=== PATIENT | male | born 1950 | race Caucasian/White ===

== ENCOUNTER 2017-03-26 09:47 | Emergency (ER) | payer OTHER, MEDICAID ==
[2017-03-26 09:55] VITALS: RESP 16; TEMP 99.1
--- NOTE | 2017-03-26 10:05 | EDPHY ---
H & P Time Seen by Provider: 03/26/17 09:55 HPI/ROS: CHIEF COMPLAINT: I am just going crazy, and depression and anxiety HISTORY OF PRESENT ILLNESS: This 67-year-old man has not seen a doctor for 5 years or more. He has a history of hypertension not currently on medications. He states that he also has a history of depression. He presents to the ED with multiple complaints including feeling off balance like he is walking on a boat on the ocean, increasing depression, weight loss of about 20 lb, all symptoms lasting most of 2017. He said today he was at home and felt like he "just could not take it anymore "and called an ambulance to bring him to the emergency department. He does denies suicidal or homicidal ideation or hallucinations. REVIEW OF SYSTEMS: Eye: no change in vision ENT: no sore throat Cardiac: no chest pain or syncope Pulmonary: no cough or SOB Abdomen: no vomiting, diarrhea, abdominal pain Musculoskeletal: no back pain Skin: no rash Neuro: Mild headache, no visual symptoms. Not thunderclap in onset or worst of life. Constitutional: no fever : no urinary symptoms A comprehensive 10 point review of systems is otherwise negative aside from elements mentioned in the history of present illness. PAST MEDICAL HISTORY: Hypertension, depression. Social history: Smoker, no recent alcohol General Appearance: Alert and conversant, cooperative. Thin. Eyes: No scleral icterus. ENT, Mouth: Slightly dry mucous membranes. Normal pharynx otherwise. No facial swelling or redness or tenderness. Respiratory: Normal respiratory effort, breath sounds equal, lungs are clear to auscultation. Cardiovascular: Regular rate and rhythm. Gastrointestinal: Abdomen is soft and non tender. Neurological: Alert and oriented x3. Normally conversant. Face symmetric, normal movement and sensation in all extremities. Patient is ambulatory to the bathroom without ataxia. No pronator drift. Normal [id number] bilaterally. Skin: Warm and dry, no rashes. Musculoskeletal: No peripheral edema and no joint swelling. Normal range of motion of the neck. Psychiatric: Depressed affect but denies suicidal or homicidal ideation. Moderately anxious. Emergency Department course/MDM: Head CT, urinalysis, labs to include CBC and chemistries, chest x-ray. 1050: Negative head CT per Roxy. Does not have objective evidence of cerebellar dysfunction in the emergency department. 1130: Discussed with patient, seen by case management. We attempted to arrange multiple opportunities for outpatient follow-up regarding medical and psychiatric evaluation. Seen by mental health photo offset printer in the emergency department. Does not appear to meet criteria to be an acute danger to himself or others or gravely disabled. Smoking Status: Current every day smoker Constitutional: Initial Vital Signs Temperature (C) 37.3 C 03/26/17 09:53 Heart Rate 93 03/26/17 09:53 Respiratory Rate 16 03/26/17 09:53 Blood Pressure 205/88 H 03/26/17 09:53 O2 Sat (%) 97 03/26/17 09:53 O2 Delivery Mode Room Air Allergies/Adverse Reactions: JORJE Inhibitors [Jorje Inhibitors] Allergy (Unknown, Verified 02/15/11 13:52) Home Medications: Medication Instructions Recorded NK [No Known Home Meds] 03/26/17 Medical Decision Making - Diagnostics Imaging Results: Imaging Impressions Chest X-Ray 03/26/17 10:24 Impression: 1. Nodular opacities in the lung bases, similar to the comparison from 2012, suggesting nipple shadows. 2. Hyperexpansion with interstitial prominence, likely related to COPD/ emphysema. Head CT 03/26/17 10:24 Impression: 1. No acute intracranial findings. If symptoms persist and clinical suspicion warrants, consider MRI. 2. Diffuse cerebral atrophy with periventricular and subcortical low attenuation consistent with chronic microvascular ischemic gliosis. Findings discussed with ANUPAMA OSBORN 03/26/2017 at 10:50. Differential Diagnosis: Differential for depression and anxiety considered including but not limited to metabolic, primary organic or psychiatric, drug or alcohol, infectious. - Data Points Laboratory Results: Laboratory Results 03/26/17 09:56 03/26/17 09:56 03/26/17 03/26/17 03/26/17 12:26 09:56 09:56 WBC 5.65 10^3/uL 10^3/uL (3.80-9.50) RBC 4.28 10^6/uL L 10^6/uL (4.40-6.38) Hgb 13.3 g/dL L g/dL (13.7-17.5) Hct 38.7 % L % (40.0-51.0) MCV 90.4 fL fL (81.5-99.8) MCH 31.1 pg pg (27.9-34.1) MCHC 34.4 g/dL g/dL (32.4-36.7) RDW 13.8 % % (11.5-15.2) Plt Count 158 10^3/uL 10^3/uL (150-400) MPV 10.6 fL fL (8.7-11.7) Neut % (Auto) 57.8 % % (39.3-74.2) Lymph % (Auto) 33.5 % % (15.0-45.0) [place] % (Auto) 7.3 % % (4.5-13.0) Eos % (Auto) 0.5 % L % (0.6-7.6) Baso % (Auto) 0.7 % % (0.3-1.7) Nucleat RBC Rel Count 0.0 % % (0.0-0.2) Absolute Neuts (auto) 3.27 10^3/uL 10^3/uL (1.70-6.50) Absolute Lymphs (auto) 1.89 10^3/uL 10^3/uL (1.00-3.00) Absolute Monos (auto) 0.41 10^3/uL 10^3/uL (0.30-0.80) Absolute Eos (auto) 0.03 10^3/uL 10^3/uL (0.03-0.40) Absolute Basos (auto) 0.04 10^3/uL 10^3/uL (0.02-0.10) Absolute Nucleated RBC 0.00 10^3/uL 10^3/uL (0-0.01) Immature Gran % 0.2 % % (0.0-1.1) Immature Gran # 0.01 10^3/uL 10^3/uL (0.00-0.10) Sodium 141 mEq/L mEq/L (134-144) Potassium 3.8 mEq/L mEq/L (3.5-5.2) Chloride 108 mEq/L mEq/L (97-110) Carbon Dioxide 20 mEq/l L mEq/l (22-31) Anion Gap 13 mEq/L mEq/L (8-16) BUN 11 mg/dL mg/dL (7-23) Creatinine 1.0 mg/dL mg/dL (0.7-1.3) Estimated GFR > 60 Glucose 141 mg/dL H mg/dL (70-100) Calcium 9.3 mg/dL mg/dL (8.5-10.4) Urine Color YELLOW Urine Appearance CLEAR Urine pH 5.0 (5.0-7.5) Ur Specific [place] 1.016 (1.002-1.030) Urine Protein NEGATIVE (NEGATIVE) Urine Ketones NEGATIVE (NEGATIVE) Urine Blood NEGATIVE (NEGATIVE) Urine Nitrate NEGATIVE (NEGATIVE) Urine Bilirubin NEGATIVE (NEGATIVE) Urine Urobilinogen NEGATIVE EU EU (0.2-1.0) Ur Leukocyte Esterase NEGATIVE (NEGATIVE) Urine Glucose NEGATIVE (NEGATIVE) Medications Given: Discontinued Medications Lorazepam (Ativan) 0.5 mg PO EDNOW ONE Stop: 03/26/17 10:25 Last Admin: 03/26/17 10:27 Dose: 0.5 mg Departure - Departure Disposition: Home, Routine, Self-Care Clinical Impression: Anxiety Depression Qualifiers: Depression Type: major depressive disorder Major depression recurrence: recurrent Active/Remission status: currently active Major depression episode severity: moderate Qualified Code(s): F33.1 - Major depressive disorder, recurrent, moderate Condition: Good Instructions: Depression (ED) Referrals: [facility],. [Clinic] - As per Instructions [facility],. [Clinic] - As per Instructions
[2017-03-26 10:12] LABS: % IMMATURE GRANULYOCYTES 0.2 % (0.0-1.1); ABSOLUTE IMMATURE GRANULOCYTES 0.01 10^3/uL (0.00-0.10); ADD DIFF? NO; ADD MORPH? NO; ADD SCAN? NO; ATYPICAL LYMPHOCYTE FLAG 20 (0-99); FRAGMENT RBC FLAG 0 (0-99); HEMATOCRIT 38.7 % (40.0-51.0); HEMOGLOBIN 13.3 g/dL (13.7-17.5); LEFT SHIFT FLG 0 (0-99); LIPEMIA HEMOLYSIS FLAG 90 (0-99); MEAN CELL HEMOGLOBIN 31.1 pg (27.9-34.1); MEAN CELL HEMOGLOBIN CONCENTR. 34.4 g/dL (32.4-36.7); MEAN CELL VOLUME 90.4 fL (81.5-99.8); MEAN PLATELET VOLUME 10.6 fL (8.7-11.7); PLATELET CLUMPS FLAG 0 (0-99); PLATELET COUNT 158 10^3/uL (150-400); RED BLOOD CELL COUNT 4.28 10^6/uL (4.40-6.38); RED CELL DISTRIBUTION WIDTH 13.8 % (11.5-15.2)
[2017-03-26 10:18] LABS: ANION GAP 13 mEq/L (8-16); CALCIUM 9.3 mg/dL (8.5-10.4); CARBON DIOXIDE 20 mEq/l (22-31); CHLORIDE 108 mEq/L (97-110); GLOMERULAR FILTRATION RATE > 60; GLUCOSE 141 mg/dL (70-100); POTASSIUM 3.8 mEq/L (3.5-5.2); SODIUM 141 mEq/L (134-144)
[2017-03-26] MEDS ORDERED: LORazepam 1 MG TAB PO ONE (10:24)
[2017-03-26 12:34] LABS: COLOR YELLOW; LEUKOCYTE ESTERASE,URINE NEGATIVE (NEGATIVE); NITRITE,URINE NEGATIVE (NEGATIVE)
[2017-03-26 12:47] VITALS: BP 180/100; PULSE 85; O2SAT 95
--- NOTE | 2017-03-26 14:16 | ASDISCHSUM ---
Discharge Information Plan Status:Home with No Needs Medically Cleared to Leave: Discharge Date:03/26/2017 12:46 PM CM D/C Disposition:Home, Routine, Self-Care ADT D/C Disposition:Home, Routine, Self-Care Projected Discharge Date:03/26/2017 12:46 PM Transportation at D/C:Cab [employer]oucher Discharge Delay Reason: Follow-Up Date:03/26/2017 12:46 PM Discharge Slot: Final Diagnosis: Placement Information Patient Contact Information Contact Name:[id number] Relationship: Address: Home Phone: Work Phone: City: Alternate Phone: State/Vision Source Code: Email: Financial Information Financial Class: Primary Plan Desc:MEDICARE OUTPATIENT Primary Plan Number:[id number] Secondary Plan Desc:MEDICAID HEALTH FIRST [place] OP Secondary Plan Number:[id number] Assessment Information LACE LACE Acuity / Level of Care Answers: No. Comorbidities - select Answers: Chronic pulmonary disease all that apply Emergency dept visits in Answers: 1 last 6 months Score: 3 Date Signed: 03/26/2017 01:50 PM Electronically Signed By:Cheyanne Mosquera RN [facility] CM Progress Note CM Note CM Note Notes: Spoke with patient extensively about his weakness, weight loss, low energy levels, chronic pain and depression. Patient states he has not been to a PCP or mental health clinic for more than 4 years, "It is just too hard for me to go. I won't go. If you were to make an appointment for me this next week, I wouldn't go. I'm just being honest. It is too much for me." Patient presents in a debilitating depressive state, making minimal eye contact, nihilistic, becomes anxious very easily, and self reports "I read about depression and I guess I have a 'depressed brain,' I am more negative than I have ever been and I'm anhedonic." Patient states he has no thoughts of hurting himself "but I just wish it would all end. I have no validity in my life." Patient states he has struggled with depression and anxiety for many years and used to see a counselor and take medication that helped but "I stopped going because it was just too much, to get there and then nothing really helped." Patient was last at [facility] in 2014 for an asthma attack and in 2012; in 2012 patient was referred to followup with [facility] about his chest xray and alcohol abuse, but per patient, he never followed up. Patient also tried to get seen by [facility] "but it was several years ago, the person I spoke to put a note in saying I used 'abusive language' but I didn't. I had made a complaint about their processes but I wasn't abusive. And it took 6 months to see a psychiatrist. It was not a good experience so I didn't follow up." Patient states he no longer drinks alcohol heavily or regularly " I had one beer a week or so ago." This CM and ED MD Dr Hebert thought it would be beneficial for [facility] to speak to patient. Christina with [facility] visited with patient and provided additional [facility] resources, including their [facility] program, where a counselor would provide home visits. PAtient does not have a phone or use e-mail. Although patient is up front and says he would not make it to followup appointments, he does say he would welcome any home visits. This CM to follow up with [facility] tomorrow to see about possibility of a home visit for a follow-up and general physical, medication review, etc. This CM will also call [facility] to discuss their [facility] program and see if someone can reach out to patient at his apartment. Patient lives alone in an apartment at [facility] through [facility]. Patient does not want [facility] to be contacted or involved. Patient states he has a best friend but "he has his own things to deal with, I care about him but he also causes me a lot of stress." Patient has no other close support or family members. Date Signed: 03/26/2017 02:14 PM Electronically Signed By:Cheyanne Mosquera RN Intervention Information Intervention Type:Semasios Date of Service:03/26/2017 02:15 PM Patient Type:Emergency Room Staff Member:GONZALEZ Mosquera, Cheyanne Hours:0.5 Discipline:Elementary Math Tutor Severity: Comment:
== END 2017-03-26 12:46 | disposition home or self-care (01) ==
LOC: EDUNIT#
DX: F33.1 Major depressive disorder, recurrent, moderate (principal); I10 Essential (primary) hypertension; F17.200 Nicotine dependence, unspecified, uncomplicated

== ENCOUNTER 2018-07-07 11:04 | Inpatient (IN) | payer OTHER, MEDICAID ==
[2018-07-07] MEDS ORDERED: NS 1,000 ML IV ONE (12:04)
[2018-07-07 12:28] LABS: PLATELET COUNT 257 10^3/uL (150-400)
--- NOTE | 2018-07-07 12:31 | EDPHY ---
H & P Stated Complaint: hematuria x 3 days, fatigue and lightheaded Time Seen by Provider: 07/07/18 12:28 HPI/ROS: HPI: This is a 68-year-old male who presents with Chief Complaint: Hematuria x3 days, fatigue and lightheaded Location: Quality: Blood in urine Duration: 3-4 days Signs and Symptoms: no fever, no nausea, no vomiting, no hematemesis, no blood in stool, + abdominal bloating, no diarrhea, no back pain, no burning with urination, no testicular/groin pain, no indigestion, no chest pain, no shortness of breath, no flank pain Timing: Acute, intermittent episodes Severity: Moderate Context: Patient presents with blood in his urine starting Monday evening. Reports that it he sees blood in his blood stream and he can see blood in the toilet every time he urinates. Denies any burning with urination, fever, flank pain, urinary hesitancy, urinary urgency. No history kidney stones. Reports several month history of abdominal bloating and gas pain that his primary care provider knows about but no imaging has been performed. Last prostate exam was approximately 10 years ago. Notes 30 lb weight loss in over the last 1 year. Patient urinated upon arrival to the emergency room without difficulty. Not on any blood thinners. Modifying Factors: None Comment: ROS: A comprehensive 10 system review of systems is otherwise negative aside from elements mentioned in the history of present illness. MEDICAL/SURGICAL/SOCIAL HISTORY: Medical history: Hypertension, asthma,depression, hyperthyroidism Surgical history: Denies Social history: Current every day smoker. Alcohol use pretty heavy in the past. Family history noncontributory. CONSTITUTIONAL: Chronically ill-appearing elderly white male, awake and alert, no obvious distress HEENT: Atraumatic and normocephalic, PERRL, EOMI. Hard of hearing. Nares patent; no rhinorrhea; no nasal mucosal edema. Tympanic membranes clear. Oropharynx clear, no exudate and moist pink mucosa. Airway patent. No lymphadenopathy. No meningismus. Cardiovascular: Normal S1/S2, regular rate, regular rhythm, without murmur rub or gallop. PULMONARY/CHEST: Symmetrical and nontender. Clear to auscultation bilaterally. Good air movement. No accessory muscle usage. ABDOMEN: Soft, nondistended, mild suprapubic tenderness, no rebound, no guarding, no peritoneal signs, no masses or organomegaly. No CVAT. EXTREMITIES: 2/2 pulses, strength 5/5, no deformities, no clubbing, no cyanosis or edema. NEUROLOGICAL: no focal neuro deficits. GCS 15. SKIN: Warm and dry, no erythema. no rash. Good capillary refill. Source: Patient, RN/MD Exam Limitations: No limitations - Personal History Tetanus Vaccine Date: within last 5 years - Medical/Surgical History Hx Asthma: No Hx Chronic Respiratory Disease: No Hx Diabetes: No Hx Cardiac Disease: No Hx Renal Disease: No Hx Cirrhosis: No Hx Alcoholism: No Hx HIV/AIDS: No Hx Splenectomy or Spleen Trauma: No Other PMH: Past medical history: Hypertension, asthma,depression, hyperthyroid - Social History Smoking Status: Current every day smoker Constitutional: Initial Vital Signs Temperature (C) 36.9 C 07/07/18 11:10 Heart Rate 81 07/07/18 11:10 Respiratory Rate 16 07/07/18 11:10 Blood Pressure 153/73 H 07/07/18 11:10 O2 Sat (%) 97 07/07/18 11:10 O2 Delivery Mode Room Air Allergies/Adverse Reactions: JORJE Inhibitors [Jorje Inhibitors] Allergy (Unknown, Verified 02/15/11 13:52) Home Medications: Medication Instructions Recorded Methimazole 12/08/17 Metoprolol Tartrate 50 mg PO BID #60 tablet 12/08/17 Paxil 12/08/17 Triazolam [Halcion 0.25MG (*)] 0.25 mg PO HS PRN #30 tab 12/08/17 Medical Decision Making ED Course/Re-evaluation: Vital signs reviewed and show mildly elevated blood pressure. No systemic signs. IV access, laboratory studies, urinalysis, CT abdomen and pelvis scan ordered Given 1 L normal saline 1254: Labs reviewed. WBC 10 K, BUN 15, creatinine 1.2, glucose 101, no coagulopathy, glucose 101 Urinalysis shows 3+ blood, 2+ protein, 50-200 RBCs 1530: Called by Radiology, Dr. Talat Schroeder, who reports lesion on the wall the bladder on the right side superior posterior portion, lesion on the liver that was not there in 2010, cirrhosis of the liver, chronic pancreatitis with calcifications at the head but no pseudocyst. 1535: ED decision to consult hospitalist for gross hematuria, bladder wall lesion, liver lesion, cirrhosis, chronic pancreatitis. Consulted Urology, Dr. Santamaria, recommends ultrasound of bladder and if more than [address] a [address] Kerr catheter with CBI. This patient was seen under the supervision of my secondary supervising physician. I evaluated care for this patient with attending. Differential Diagnosis: Differential diagnosis includes but is not limited to obstruction, diverticulitis, kidney stone, ureteral stone, bladder cancer, urinary tract infection, pyelonephritis. - Data Points Laboratory Results: Laboratory Results 07/07/18 12:15 07/07/18 12:15 07/07/18 07/07/18 07/07/18 12:15 12:15 12:15 WBC 9.64 10^3/uL H 10^3/uL (3.80-9.50) RBC 4.13 10^6/uL L 10^6/uL (4.40-6.38) Hgb 13.6 g/dL L g/dL (13.7-17.5) Hct 39.3 % L % (40.0-51.0) MCV 95.2 fL fL (81.5-99.8) MCH 32.9 pg pg (27.9-34.1) MCHC 34.6 g/dL g/dL (32.4-36.7) RDW 12.4 % % (11.5-15.2) Plt Count 257 10^3/uL 10^3/uL (150-400) MPV 9.1 fL fL (8.7-11.7) Neut % (Auto) 53.0 % % (39.3-74.2) Lymph % (Auto) 35.6 % % (15.0-45.0) [place] % (Auto) 7.5 % % (4.5-13.0) Eos % (Auto) 2.7 % % (0.6-7.6) Baso % (Auto) 0.7 % % (0.3-1.7) Nucleat RBC Rel Count 0.0 % % (0.0-0.2) Absolute Neuts (auto) 5.11 10^3/uL 10^3/uL (1.70-6.50) Absolute Lymphs (auto) 3.43 10^3/uL H 10^3/uL (1.00-3.00) Absolute Monos (auto) 0.72 10^3/uL 10^3/uL (0.30-0.80) Absolute Eos (auto) 0.26 10^3/uL 10^3/uL (0.03-0.40) Absolute Basos (auto) 0.07 10^3/uL 10^3/uL (0.02-0.10) Absolute Nucleated RBC 0.00 10^3/uL 10^3/uL (0-0.01) Immature Gran % 0.5 % % (0.0-1.1) Immature Gran # 0.05 10^3/uL 10^3/uL (0.00-0.10) PT 12.5 SEC SEC (12.0-15.0) INR 0.97 (0.83-1.16) APTT 32.7 SEC SEC (23.0-38.0) Sodium 136 mEq/L mEq/L (135-145) Potassium 3.8 mEq/L mEq/L (3.5-5.2) Chloride 107 mEq/L mEq/L (97-110) Carbon Dioxide 19 mEq/l L mEq/l (22-31) Anion Gap 10 mEq/L mEq/L (6-14) BUN 15 mg/dL mg/dL (7-23) Creatinine 1.2 mg/dL mg/dL (0.7-1.3) Estimated GFR 60 Glucose 101 mg/dL H mg/dL (70-100) Calcium 8.7 mg/dL mg/dL (8.5-10.4) Urine Color Urine Appearance Urine pH Ur Specific [place] Urine Protein Urine Ketones Urine Blood Urine Nitrate Urine Bilirubin Urine Urobilinogen Ur Leukocyte Esterase Urine RBC Urine WBC Ur Epithelial Cells Urine Glucose 07/07/18 12:10 WBC RBC Hgb Hct MCV MCH MCHC RDW Plt Count MPV Neut % (Auto) Lymph % (Auto) [place] % (Auto) Eos % (Auto) Baso % (Auto) Nucleat RBC Rel Count Absolute Neuts (auto) Absolute Lymphs (auto) Absolute Monos (auto) Absolute Eos (auto) Absolute Basos (auto) Absolute Nucleated RBC Immature Gran % Immature Gran # PT INR APTT Sodium Potassium Chloride Carbon Dioxide Anion Gap BUN Creatinine Estimated GFR Glucose Calcium Urine Color RED Urine Appearance HAZY Urine pH 6.0 (5.0-7.5) Ur Specific [place] 1.012 (1.002-1.030) Urine Protein 2+ H (NEGATIVE) Urine Ketones NEGATIVE (NEGATIVE) Urine Blood 3+ H (NEGATIVE) Urine Nitrate NEGATIVE (NEGATIVE) Urine Bilirubin NEGATIVE (NEGATIVE) Urine Urobilinogen NEGATIVE EU EU (0.2-1.0) Ur Leukocyte Esterase NEGATIVE (NEGATIVE) Urine RBC 50-182 /hpf H /hpf (0-3) Urine WBC 10-15 /hpf H /hpf (0-3) Ur Epithelial Cells NONE SEEN /lpf /lpf (NONE-1+) Urine Glucose NEGATIVE (NEGATIVE) Medications Given: Discontinued Medications Sodium Chloride (Ns) 1,000 mls @ 0 mls/hr IV ONCE ONE; Wide Open PRN Reason: Protocol Stop: 07/07/18 12:05 Last Admin: 07/07/18 12:15 Dose: 1,000 mls Departure - Departure Disposition: [facility] Clinical Impression: Gross hematuria, Lesion of bladder, Liver lesion, Chronic alcoholic pancreatitis Liver cirrhosis Qualifiers: Hepatic cirrhosis type: alcoholic cirrhosis Ascites presence: without ascites Qualified Code(s): K70.30 - Alcoholic cirrhosis of liver without ascites Condition: Fair
[2018-07-07 12:54] LABS: INR 0.97 (0.83-1.16); PROTIME(PATIENT) 12.5 SEC (12.0-15.0)
[2018-07-07] MEDS ORDERED: IOPAMIDOL (ISOVUE-300) 100 ML BTL ONE ×2 (14:06→19:46)
[2018-07-07] MEDS ORDERED: ONDANSETRON 4 MG/2 ML VIAL IVP PRN (16:06)
[2018-07-07] MEDS ORDERED: ONDANSETRON DISINTEGRATING 4 MG TAB PO PRN (16:06)
[2018-07-07] MEDS ORDERED: diphenhydrAMINE 25 MG CAP PO PRN (16:40)
[2018-07-07] MEDS ORDERED: ALBUTEROL 60 PUFFS/8 GM MDI IH PRN (16:40)
[2018-07-07] MEDS ORDERED: OXYMETAZOLINE 30 ML NASAL SPRAY EACHNARE PRN (17:30)
--- NOTE | 2018-07-07 17:33 | GHP ---
[f rep st] HISTORY AND PHYSICAL DATE OF ADMISSION: 07/07/2018 CHIEF COMPLAINT: Hematuria. HISTORY OF PRESENT ILLNESS: This is a 68-year-old man who presents with hematuria. This started 4 d ays prior to presentation. He does take aspirin as needed for headaches but no other blood thinners. This started abruptly. He had urinated normally earlier in the day and then that evening he had fr ank blood. He has noted some clots in there. He has not had any problems actually producing urine w hen he feels like he needs to. He has never seen a urologist before. He notes that he had 1 episode of mild blood in his stool, however, this has not recurred. He notes he has had some balance proble ms recently. He has also noted that he has been bloated recently. He has no change in his stool col or or caliber. He has a significant history of alcohol abuse, although he has not had anything to dr azevedo for 6 years. PAST MEDICAL/SURGICAL HISTORY: 1. Alcohol as above. 2. History of upper GI bleed in 1999. 3. Hypertension. 4. Depression anxiety. 5. Reactive airways disease. 6. Tremor. 7. Hyperthyroid diagnosed about 1 year ago associated with some weight loss. 8. Shoulder surgery. 9. Achilles tendon repair. 10. Knee surgery. MEDICATIONS: Please see medication reconciliation. ALLERGIES: EDIE inhibitors. FAMILY HISTORY: Reviewed and noncontributory. SOCIAL HISTORY: He quit drinking as above. He does currently smoke. REVIEW OF SYSTEMS: 10-point review of systems is conducted and is negative except per HPI. PHYSICAL EXAM: VITAL SIGNS: Blood pressure 168/74, heart rate 55, respiration rate 19, sating 97% o n room air, temperature 36.7. GENERAL: Mr. Carey is a pleasant man who is resting comfortably. No acute distress. HEENT: Shows him to have multiple missing teeth in his lower jaw. CARDIOVASCULAR: Exam shows a regular rate and rhythm. There are no murmurs, rubs, or gallops. PULMONARY: Shows jamie ngs are clear to auscultation bilaterally. He is in no respiratory distress. ABDOMEN: Soft, nonten aneglica, nondistended. There is no suprapubic tenderness to palpation. No flank pain. SKIN: Shows no rash. : Exam shows no Kerr. NEUROLOGIC: Exam shows him to be alert and oriented x3. He has no focal neurologic deficits. PSYCHIATRIC: Shows normal mood and affect. LABS: White count is 9.4, hemoglobin is 13.6, INR 0.97, creatinine is 1.2, bicarb is 19, glucose is 101. Urinalysis shows 50-182 reds, 10-15 whites, 3+ blood. DATA: 1. Discussed with Shanae Ennis, will admit to med/surg. 2. Discussed with Dr. Santamaria, will make him n.p.o. after midnight. 3. I reviewed his abdominal CT scan that shows a lesion in his bladder which may indicate a bladder wall neoplasm. He has question of hepatic steatosis and evidence of chronic pancreatitis with diffus e pancreatic calcifications. IMPRESSION AND PLAN: 1. Hematuria with possible bladder neoplasm seen on CT scan: Urology will be involved. He has no e vidence of urinary obstruction at this point. He has no evidence of a UTI either. He may be a kayleen date for a cystoscopy while he is here for further diagnosis. 2. Liver consistent with possible steatosis and chronic pancreatitis seen on his CT scan: Will get a right upper quadrant ultrasound of his liver to better characterize. Will check LFTs as well as IN R. He has no abdominal pain to indicate acute pancreatitis and he gives no history of having had acu te pancreatitis. These changes may be from his chronic alcohol use, he is currently abstinent as abo ve. 3. Recent balance issues. Will check a CT scan of his head given lesion seen in his bladder. 4. Hyperthyroid. Continues methimazole. Check TSH and free T4. 5. Hypertension. Continue his triamterene hydrochlorothiazide for now. 6. Mild leukocytosis. Recheck tomorrow. 7. Code status. He would like to be do not resuscitate. He is asked to have a MOLST form provided to him. I will ask Case Management to do this. 8. Venous thromboembolism risk is moderate, though he has hematuria. Will place him on SCDs. /[id number]/MODL
[2018-07-07] MEDS: NICOTINE 21 MG/24 HR PATCH TD SCH (18:07)
[2018-07-07] MEDS: LORazepam 0.5 MG TAB PO PRN (18:49)
[2018-07-07] MEDS: SIMETHICONE 80 MG TAB CHEW PO SCH ×2 (18:49→20:53)
--- NOTE | 2018-07-07 20:46 | SOAPPROG ---
SOAP Progress Note Assessment/Plan: Assessment: Presents w/ gross painless hematuria and bladder mass. Plan: Proceed with intraoperative cystoscopy, excision of bladder mass, and bilateral retrograde pyelography tomorrow AM. (consult # [id number]) Objective: Vital Signs Temp Pulse Resp BP Pulse Ox 36.6 C 59 L 18 140/63 H 99 07/07/18 19:31 07/07/18 19:31 07/07/18 19:31 07/07/18 19:31 07/07/18 19:31 07/06/18 07/07/18 07/08/18 05:59 05:59 06:59 Intake Total 240 Output Total 250 Balance -10 PT 12.5 SEC (12.0-15.0) 07/07/18 12:15 INR 0.97 (0.83-1.16) 07/07/18 12:15 ICD10 Worksheet Patient Problems: Problems Problem Status Onset Gross hematuria Acute Lesion of bladder Acute Liver lesion Acute Chronic alcoholic pancreatitis Acute Liver cirrhosis Acute
[2018-07-07] MEDS: ACETAMINOPHEN 325 MG TAB PO PRN (20:53)
[2018-07-07] MEDS: PARoxetine HCL 20 MG TAB PO SCH (20:53)
[2018-07-07] MEDS: METOPROLOL TARTRATE 25 MG TAB PO SCH (20:54)
[2018-07-08 04:42] LABS: PLATELET COUNT 215 10^3/uL (150-400)
[2018-07-08 04:54] LABS: INR 1.08 (0.83-1.16); PROTIME(PATIENT) 13.6 SEC (12.0-15.0)
[2018-07-08] MEDS ORDERED: IOPAMIDOL (ISOVUE-300) 150 ML BTL ONE (05:46)
[2018-07-08] MEDS ORDERED: LIDOCAINE 2% JELLY 20 ML (UROJECT) ONE (05:46)
[2018-07-08] MEDS ORDERED: MIDAZOLAM 2 MG/2 ML VIAL ONE (08:08)
[2018-07-08] MEDS ORDERED: levOFLOXACIN 500 MG/DEXTROSE/100 ML BAG IV ONE (08:12)
[2018-07-08] MEDS ORDERED: MIDAZOLAM 2 MG/2 ML VIAL IVP ONE (08:15)
--- NOTE | 2018-07-08 08:18 | PDANEPAE ---
ANE Past Medical History - Cardiovascular History Hx Hypertension: Yes Hx Arrhythmias: No Hx Chest Pain: No Hx Coronary Artery / Peripheral Vascular Disease: No Hx CHF / Valvular Disease: No Hx Palpitations: No - Pulmonary History Hx COPD: No Hx Asthma/Reactive Airway Disease: No Hx Recent Upper Respiratory Infection: No Hx Oxygen in Use at Home: No Hx Sleep Apnea: No Sleep Apnea Screening Result - Last Documented: Positive - Endocrine History Hx Diabetes: No Hypothyroid: No Hyperthyroid: Yes Obesity: no - Renal History Hx Renal Disorders: No - Liver History Hx Hepatic Disorders: No - GI History GERD: no Hx Gastrointestinal Disorders: No - Chronic Pain History Chronic Pain: Yes - Surgical History Prior Surgeries: ortho ANE Review of Systems Review of Systems: - Exercise capacity Exercise capacity: >=4 METS ANE Patient History - Allergies Allergies/Adverse Reactions: JORJE Inhibitors [Jorje Inhibitors] Allergy (Unknown, Verified 02/15/11 13:52) - Home Medications Home Medications: Methimazole [Tapazole 5MG (*)] 2.5 mg PO DAILY 12/08/17 [Last Taken Unknown] PARoxetine HCL [Paxil] 40 mg PO HS 12/08/17 [Last Taken Unknown] Albuterol [Proventil Inhaler HFA (*)] 1 - 2 puffs IH Q4H PRN 07/07/18 [Last Taken Unknown] Aspirin [Aspirin 325 mg (*)] 325 - 650 mg PO DAILY PRN 07/07/18 [Last Taken 12/17] Ibuprofen [Motrin (*)] 200 - 400 mg PO Q6H PRN 07/07/18 [Last Taken 07/06/18] Metoprolol Tartrate [Lopressor 25 mg (*)] 12.5 mg PO BID 07/07/18 [Last Taken Unknown] Oxymetazoline HCl [Vicks Sinex] 1 spray EACHNARE PRN PRN 07/07/18 [Last Taken Unknown] Triamterene/Hydrochlorothiazid [Triamterene-Hctz 37.5-25 mg Tb] 1 each PO DAILY 07/07/18 [Last Taken Unknown] diphenhydrAMINE [Benadryl 25 MG (*)] 25 mg PO HS PRN 07/07/18 [Last Taken Unknown] - NPO status NPO Since - Liquids (Date): 07/08/18 NPO Since - Liquids (Time): 00:01 NPO Since - Solids (Date): 07/08/18 NPO Since - Solids (Time): 00:01 - Anes Hx Anes Hx: no prior problems - Smoking Hx Smoking Status: Current every day smoker - Family Anes Hx Family Anes Hx: neg - N/A ANE Labs/Vital Signs - Labs Result Diagrams: 07/08/18 04:34 07/08/18 04:34 - Vital Signs Blood Pressure: 132/73 Heart Rate: 65 Respiratory Rate: 16 O2 Sat (%): 98 Height: 177.8 cm Weight: 62.6 kg ANE Physical Exam - Airway Neck exam: FROM Mallampati Score: Class 2 Mouth exam: poor dentition - Pulmonary Pulmonary: no respiratory distress, no rales or rhonchi, clear to auscultation, reduced air movement - Cardiovascular Cardiovascular: regular rate and rhythym, no murmur, rub, or gallop - ASA Status ASA Status: III ANE Anesthesia Plan Total IV Anesthesia: No
[2018-07-08] MEDS ORDERED: PROPOFOL 200 MG/20 ML VIAL ONE (08:21)
[2018-07-08] MEDS ORDERED: fentaNYL 100 MCG/2 ML INJ ONE ×3 (08:21→09:13)
[2018-07-08] MEDS ORDERED: levOFLOXACIN 500 MG/DEXTROSE 100 ML IV ONE (08:21)
[2018-07-08] MEDS ORDERED: DEXAMETHASONE 4 MG/ML VIAL ONE (08:22)
[2018-07-08] MEDS ORDERED: ROCURONIUM 50 MG/5 ML VIAL ONE (08:24)
[2018-07-08] MEDS ORDERED: LIDOCAINE 2% 2 ML INJ ONE ×2 (08:25)
[2018-07-08] MEDS ORDERED: LR 1,000 ML IV ONE (08:27)
[2018-07-08] MEDS ORDERED: PHENYLEPHRINE HCL 100 MCG/ML SYR ONE (08:30)
[2018-07-08] MEDS ORDERED: TRIAMTERENE/HCTZ 37.5/25 1 EACH TAB PO SCH (09:00)
[2018-07-08] MEDS ORDERED: SUGAMMADEX SODIUM 200 MG/2 ML VIAL IVP ONE (09:09)
--- NOTE | 2018-07-08 09:32 | POSTOPPROG ---
Post Op Note Date of Operation: 07/08/18 Surgeon: Lei Santamaria (# [id number]) Anesthesia: GET(General Endotracheal) Pre-op Diagnosis: Gross hematuria, bladder mass Post-op Diagnosis: Gross hematuria, ~ 3 cm bladder mass Procedure: TURBT, bilateral RGP's Findings: See op note Inf/Abcess present in the surg proc area at time of surgery?: No EBL: Minimal Complications: None Specimen(s): Bladder tumor
--- NOTE | 2018-07-08 09:32 | HOSPPROG ---
Hospitalist Progress Note Assessment/Plan: 68yo M with hyperthyroidism, prior etoh abuse here with hematuria. #Hematuria, bladder mass - S/p cystoscopy and biopsy/resection with Dr Santamaria this AM - CBI per urology - Monitor H/H daily #Liver lesions: Synthetic function ok - Needs MRI and potentially biopsy. Will wait until off CBI to order #Hyperthyroidism: May be slightly over-suppressed based on labs - Continue methimazole at current dose, needs close outpt f/u #Recent balance issues - May need brain MRI pending results of bladder mass #HTN - Home meds #Leukocytosis: Resolved. #Chronic pancreatitis: Seen on CT. C/w prior etoh use. #H/o etoh abuse: Now in remission. VTE ppx: SCDs Code: DNR/DNI Dispo: Remain inpatient Subjective: Had cystoscopy with Dr Santamaria this AM. Now has CBI. In some pain in lower abdomen. Objective: Vital Signs Temp Pulse Resp BP Pulse Ox 36.8 C 65 16 132/73 H 98 07/08/18 07:47 07/08/18 08:18 07/08/18 08:18 07/08/18 08:18 07/08/18 08:18 Laboratory Results 07/08/18 04:34 07/08/18 04:34 07/07/18 07/08/18 07/09/18 04:59 05:59 05:59 Intake Total Output Total Balance PT 13.6 SEC (12.0-15.0) 07/08/18 04:34 INR 1.08 (0.83-1.16) 07/08/18 04:34 - Physical Exam Constitutional: no apparent distress, other (thin, frail appearing) Eyes: PERRL, anicteric sclera Ears, Nose, Mouth, Throat: other (dried blood on lower lip) Cardiovascular: regular rate and rhythym, no murmur, rub, or gallop Respiratory: no respiratory distress, no rales or rhonchi, clear to auscultation Gastrointestinal: normoactive bowel sounds, soft, non-tender abdomen, no palpable masses Genitourinary: flowers in urethra (red urine in bag) Skin: no rashes or abrasions, no fluctuance, no induration Musculoskeletal: full muscle strength, no muscle tenderness, normal joint ROM Neurologic: AAOx3 Psychiatric: interacting appropriately ICD10 Worksheet Patient Problems: Problems Problem Status Onset Chronic alcoholic pancreatitis Acute Gross hematuria Acute Lesion of bladder Acute Liver cirrhosis Acute Liver lesion Acute
[2018-07-08] MEDS ORDERED: fentaNYL 100 MCG/2 ML INJ IVP PRN (10:06)
[2018-07-08] MEDS ORDERED: PROMETHAZINE HCL 25 MG/ML INJ IVP PRN (10:06)
[2018-07-08] MEDS ORDERED: ONDANSETRON 4 MG/2 ML VIAL IVP PRN (10:06)
[2018-07-08] MEDS ORDERED: oxyCODONE IR 5 MG TAB PO PRN (10:06)
[2018-07-08] MEDS ORDERED: NALOXONE HCL 0.4 MG/ML INJ IVP PRN (10:06)
[2018-07-08] MEDS ORDERED: LR 500 ML IV PRN (10:06)
[2018-07-08] MEDS ORDERED: PHENYLEPHRINE HCL 100 MCG/ML SYR IVP PRN (10:06)
[2018-07-08] MEDS ORDERED: HYDROCODONE/APAP 5/325 TAB PO PRN (10:06)
[2018-07-08] MEDS ORDERED: ALBUTEROL 3 ML DEYVIAL IH PRN (10:06)
[2018-07-08] MEDS ORDERED: ACETAMINOPHEN 500 MG TAB PO PRN (10:06)
--- NOTE | 2018-07-08 10:07 | POSTANESTH ---
Post Anesthetic Evaluation Cardiovascular Status: Similar to Pre-Op Cond Respiratory Status: Similar to Pre-op Cond. Level of Consciousness/Mental Status: Can Participate in Eval Pain Control: Adequate, Prn Tx Ordered Nausea/Vomiting Control: Adequate, Prn Tx Ordered Complications Possibly Related to Anesthesia: None Noted
[2018-07-08] MEDS ORDERED: HYDROmorphONE/DILAUDID 1 MG/ML INJ IVP PRN (11:20)
[2018-07-08] MEDS: METOPROLOL TARTRATE 25 MG TAB PO SCH ×2 (11:50→21:15)
[2018-07-08] MEDS: METHIMAZOLE 5 MG TAB PO SCH (11:50)
[2018-07-08] MEDS: SIMETHICONE 80 MG TAB CHEW PO SCH ×4 (11:52→21:15)
[2018-07-08] MEDS: NICOTINE 21 MG/24 HR PATCH TD SCH (11:53)
[2018-07-08] MEDS: TRIAMTERENE/HCTZ 37.5/25 1 EACH TAB PO SCH (13:14)
[2018-07-08] MEDS: oxyCODONE IR 5 MG TAB PO PRN ×3 (13:14→23:40)
--- NOTE | 2018-07-08 13:40 | ASMTCMCOM ---
CM Note CM Note Notes: Patient plan of care reviewed with MD. 68 year old make admitted via ED with hematuria. He is s/p biopsy of bladder and is having CBI. Questionable cancerous process of bladder and liver. CM to follow for needs. Plan: TBD Date Signed: 07/08/2018 01:40 PM Electronically Signed By:Ctoy Kang RN
--- NOTE | 2018-07-08 16:38 | PDMN ---
Medical Necessity Medical necessity: [facility] Urologic Disease: 68 yo w/ presents w/ hematuria. Imaging shows possible bladder neoplasm. Urology consult. Initially OBS for workup/tx but pt requires additional MN s/p urgent TUR bladder tumor w/ B/L retrograde pyelogram. Pt on CBI, monitor H/H. Liver lesions noted on imaging and will need MRI/bx. Pt w/ recent balance issues, poss brain MRI as well dependent on results of bladder mass. Change to IP status 07/08/18@1414 per MD order. Hx etoh abuse, UGIB, HTN, reactive airway disease, hyperthyroid, depression/anxiety
--- NOTE | 2018-07-08 19:06 | GOP ---
[f rep st] OPERATIVE REPORT DATE OF OPERATION: 07/08/2018 SURGEON: Lei Santamaria MD ANESTHESIA: General endotracheal. PREOPERATIVE DIAGNOSIS: Bladder tumor with recent history of gross painless hematuria. POSTOPERATIVE DIAGNOSIS: Approximately 3 cm bladder tumor with recent history of gross painless hematuria. PROCEDURE PERFORMED: 1. Cystourethroscopy with bilateral retrograde pyelography. 2. Transurethral resection of 3 cm bladder tumor. FINDINGS: Approximately 3 cm papillary bladder tumor. SPECIMENS: Bladder tumor. ESTIMATED BLOOD LOSS: Minimal. INDICATIONS: This gentleman was admitted to the hospital yesterday with gross hematuria and a bladder mass noted on CT scan. Intraoperative excision of the mass and further evaluation of his urinary tract was recommended. The indications for the procedures, as well as potential risks and complications were discussed with the patient preoperatively. He appeared to understand, his questions were answered, and he wished to proceed. Written informed surgical consent was thereafter obtained. DESCRIPTION OF PROCEDURE: The patient was brought to the operating room and administered general endotracheal anesthesia. He was carefully placed in the dorsal lithotomy position on the cystoscopic table. The genital area was sterilely prepped with Betadine scrub and paint then draped in usual sterile fashion. Cystoscopy was performed with a 30-degree lens through a 22[place] sheath. Before doing this, anterior urethra required gentle dilation with Nazario sounds up to 26-[place]. The remainder of the anterior urethra was unremarkable. Posterior urethra revealed no significant BPH. The bladder was moderately trabeculated. There was an approximately 3 cm papillary tumor along the right anterolateral wall. No other abnormalities were seen within the bladder. Ureteral orifices were normal in regards to shape and position along the trigone. A 5-[place] open-ended ureteral catheter was used to perform retrograde pyelography bilaterally. This revealed no intraluminal filling defects of the ureters nor renal collecting systems bilaterally. I did not feel that further endoscopic evaluation of the upper tracts was warranted as a result of the completely normal pyelograms. Therefore, we decided to proceed with the removal of the tumor. A 26-[place] resectoscopic sheath with an [employer] resectoscope and a standard resecting loop were inserted. Using normal saline passive continuous flow, I carefully resected the tumor completely. A button electrode was used to fulgurate the base of the resected tumors, as well as the surrounding mucosa for both hemostasis and local tumor control purposes. All the resected abnormal tissue was removed from the bladder and sent to Pathology. At the conclusion of the procedure, the bladder was hemostatic and no gross perforation of the bladder wall had occurred as a result of the operative process. The instruments were removed and an 18-[place] 3-way Kerr catheter inserted. 15 cc of sterile water was placed in the balloon. The catheter irrigated manually and the return was nearly clear. The catheter was connected to bag drainage and continuous irrigation with normal saline. The patient was awakened, extubated, transferred to his bed, then taken to the recovery room. He tolerated the procedure well overall. COMPLICATIONS: None. DISPOSITION: He was transferred to the recovery room in stable condition and will be transferred back to the floor for continued care. /[id number]/MODL MTDD
--- NOTE | 2018-07-08 20:21 | GCON ---
[f rep st] CONSULTATION UROLOGY CONSULTATION DATE OF CONSULTATION: 07/08/2018 PHYSICIAN REQUESTING CONSULTATION: Hospitalist service. REASON FOR CONSULTATION: Gross hematuria with bladder mass. HISTORY: This is a 68-year-old gentleman who started experiencing gross painless hematuria about 4 d ays ago. The hematuria intensified yesterday for which he presented to the emergency room as a resul t. He underwent evaluation which included a CT scan and this revealed abnormalities for which the guilherme avinash was further admitted. The patient states the hematuria is better today. He denies any prior h istory of hematuria before this past week. He also denies any history of dysuria, urinary tract infe ctions, abdominal/flank pain, nor changes in his typical voiding pattern. He notices occasional urin priscilla urgency, but denies any other significant lower urinary tract symptoms. He has not seen a urolog ist previously. He denies any history of nephroureteral ureterolithiasis. PAST MEDICAL HISTORY: Notable for history of alcohol abuse, history of upper gastrointestinal bleed in 1999, high blood pressure, depression and anxiety, resting tremor, hyperthyroidism. PAST SURGICAL HISTORY: Includes various orthopedic procedures. ADMISSION MEDICATIONS: Include Paxil 40 mg at bedtime, Proventil inhaler 1-2 q.4 hours p.r.n., aspir in 325 mg p.r.n., Motrin 400 mg p.r.n., triamterene/hydrochlorothiazide 1 daily, Tapazole 2.5 mg virgie y, Lopressor 12.5 mg twice daily. MEDICAL ALLERGIES: Lisinopril causes throat swelling and difficulty breathing. FAMILY HISTORY: Noncontributory. SOCIAL HISTORY: The patient is single and lives in the [facility]. He denies current use of alcoh ol products, but does smoke about 1/2 pack of cigarettes per day. He has a greater than 30 pack-year smoking history overall. REVIEW OF SYSTEMS: Unremarkable, other than mentioned above in the HPI and Past Medical History. PHYSICAL EXAM: GENERAL: Thin white male lying supine in bed, in no acute distress presently. VITAL SIGNS: Blood pressure 132/73, pulse 65, respirations 16, oxygen saturations 98% on room air, temper ature 36.8 Celsius. HEENT: Poor dentition. Otherwise, normocephalic and atraumatic. NECK: Normal appearance. HEART: Regular rate. CHEST: Unlabored respiratory pattern. ABDOMEN: Soft without p alpable masses nor obvious organomegaly. BACK: No CVA tenderness on percussion. GENITALIA: Normal circumcised phallus with an adequate sized urethral meatus in the proper position. Scrotal structur es are normal. EXTREMITIES: Warm without cyanosis, clubbing, nor significant edema. VASCULAR: Nor mal femoral pulses bilaterally. NEUROLOGIC: He is alert and oriented. He answers all questions mya ropriately with normal mood and affect. He is somewhat nervous regarding the upcoming surgery. IMAGING STUDIES: Iodinated abdominopelvic CT scan yesterday: Upon my review, notable for an approxi mately 25 x 16 x 20 mm long right anterolateral bladder wall mass. No renal cortical masses nor neph roureterolithiasis is appreciated. No hydroureteronephrosis. Renal and ureteral urothelium cannot b e assessed due to lack of delayed contrast imaging. Head and chest CTs: By report, both negative for acute disease. LABORATORIES: Admission CBC notable for a white blood cell count 9600. Coagulation parameters dana l. Chemistry panel normal, creatinine 1.2. Admission urinalysis notable for 50-182 red blood cells and 10-15 white blood cells, but otherwise unremarkable. IMPRESSION: Gross painless hematuria. Most likely secondary to solid appearing bladder mass. I rev iewed the patient's urologic clinical situation in detail today. He has a bladder mass which needs t o be surgically excised. This is likely the source for his bleeding. All aspects regarding transure thral bladder tumor resection were reviewed with the patient today. His questions were answered and he wished to proceed. PLAN: Proceed with intraoperative transurethral bladder tumor resection today. Thank you for this consultation. Copy requested to: [facility] /[id number]/MODL
[2018-07-08] MEDS: PARoxetine HCL 20 MG TAB PO SCH (21:15)
[2018-07-08] MEDS: LORazepam 0.5 MG TAB PO PRN (21:15)
[2018-07-09] MEDS: oxyCODONE IR 5 MG TAB PO PRN ×4 (05:56→21:03)
[2018-07-09] MEDS: LORazepam 0.5 MG TAB PO PRN ×4 (05:56→21:03)
[2018-07-09] MEDS: TRIAMTERENE/HCTZ 37.5/25 1 EACH TAB PO SCH (07:56)
[2018-07-09] MEDS: METHIMAZOLE 5 MG TAB PO SCH (07:56)
[2018-07-09] MEDS: SIMETHICONE 80 MG TAB CHEW PO SCH ×4 (07:56→21:04)
[2018-07-09] MEDS: METOPROLOL TARTRATE 25 MG TAB PO SCH ×2 (07:57→21:04)
[2018-07-09] MEDS: NICOTINE 21 MG/24 HR PATCH TD SCH (07:58)
--- NOTE | 2018-07-09 08:09 | HOSPPROG ---
Hospitalist Progress Note Assessment/Plan: 68yo M with hyperthyroidism, prior etoh abuse here with hematuria. #Hematuria, bladder mass s/p resection - Awaiting pathology results - CBI stopped, keep flowers until per urology - Monitor H/H daily #Liver lesions: Synthetic function ok - MRI liver ordered to better characterize #Hyperthyroidism: Slightly over-suppressed based on labs, dose decreased 07/06 - Continue methimazole at current dose, needs repeat labs as outpt #Recent balance issues - Brain MRI w/wo ordered - PT/OT #HTN - Home meds #Leukocytosis: Resolved. #Chronic pancreatitis: Seen on CT. C/w prior etoh use. #H/o etoh abuse: Now in remission. #Anxiety VTE ppx: SCDs Code: DNR/DNI (MOST form filled out) Dispo: Remain inpatient, possibly dc tomorrow if clinically stable Subjective: Wondering what the patholgoy shows. Having some flatulence and lower abdominal pain. No fevers. Stopped CBI. Objective: Vital Signs Temp Pulse Resp BP Pulse Ox 36.8 C 67 16 164/78 H 100 07/09/18 05:13 07/09/18 07:57 07/09/18 05:13 07/09/18 07:57 07/09/18 05:13 Laboratory Results 07/09/18 04:45 07/09/18 04:45 07/08/18 07/09/18 07/10/18 05:59 05:59 05:59 Intake Total 1660 Output Total 500 2100 Balance 1160 -2100 PT 13.6 SEC (12.0-15.0) 07/08/18 04:34 INR 1.08 (0.83-1.16) 07/08/18 04:34 - Physical Exam Constitutional: no apparent distress Eyes: PERRL, anicteric sclera Ears, Nose, Mouth, Throat: moist mucous membranes Cardiovascular: regular rate and rhythym, no murmur, rub, or gallop, No edema Respiratory: no respiratory distress, no rales or rhonchi, clear to auscultation Gastrointestinal: normoactive bowel sounds, soft, non-tender abdomen, no palpable masses Genitourinary: flowers in urethra Skin: warm Musculoskeletal: full muscle strength Neurologic: AAOx3, other (bilateral fine hand tremors) Psychiatric: interacting appropriately, anxious ICD10 Worksheet Patient Problems: Problems Problem Status Onset Chronic alcoholic pancreatitis Acute Gross hematuria Acute Lesion of bladder Acute Liver cirrhosis Acute Liver lesion Acute
--- NOTE | 2018-07-09 09:07 | SOAPPROG ---
SOAP Progress Note Assessment/Plan: Assessment: History of gross painless hematuria and bladder mass, s/p TURBT Monday AM - doing well from this standpoint. Plan: Stop CBI. Will need to have Kerr removed on . Prior to discharge will arrange for this to be done in my office. Pathology pending. Subjective: No abdominal pain. Objective: Vital Signs Temp Pulse Resp BP Pulse Ox 36.7 C 67 16 164/87 H 99 07/09/18 08:00 07/09/18 08:00 07/09/18 08:00 07/09/18 08:00 07/09/18 08:00 Laboratory Results 07/09/18 04:45 07/09/18 04:45 07/08/18 07/09/18 07/10/18 05:59 05:59 05:59 Intake Total 1660 250 Output Total 500 2100 Balance 1160 -1850 PT 13.6 SEC (12.0-15.0) 07/08/18 04:34 INR 1.08 (0.83-1.16) 07/08/18 04:34 Physical Exam - Physical Exam General Appearance: thin Abdomen: soft Male Genitalia: other (urine clear via Kerr on min. rate CBI) Neuro/Psych: alert, normal mood/affect ICD10 Worksheet Patient Problems: Problems Problem Status Onset Chronic alcoholic pancreatitis Acute Gross hematuria Acute Lesion of bladder Acute Liver cirrhosis Acute Liver lesion Acute
[2018-07-09] MEDS: ACETAMINOPHEN 325 MG TAB PO PRN (11:05)
[2018-07-09] MEDS ORDERED: DIAZEPAM 5 MG TAB PO ONE ×2 (12:44→15:00)
[2018-07-09] MEDS ORDERED: GADOBUTROL 10 ML VIAL IVP ONE (15:03)
--- NOTE | 2018-07-09 16:27 | ASMTCMCOM ---
CM Note CM Note Notes: D/W RN, patient will likely benefit from a [facility] follow-up on discharge. Attempted on two occasions to meet with patient, not in room. CM will f/u on Monday. Plan: Likely C Date Signed: 07/09/2018 04:26 PM Electronically Signed By:Meli Lacey RN
[2018-07-09] MEDS: PARoxetine HCL 20 MG TAB PO SCH (21:04)
[2018-07-10] MEDS: METOPROLOL TARTRATE 25 MG TAB PO SCH (09:59)
[2018-07-10] MEDS: NICOTINE 21 MG/24 HR PATCH TD SCH (10:00)
[2018-07-10] MEDS: METHIMAZOLE 5 MG TAB PO SCH (10:00)
[2018-07-10] MEDS: SIMETHICONE 80 MG TAB CHEW PO SCH ×2 (10:01→13:20)
[2018-07-10] MEDS: oxyCODONE IR 5 MG TAB PO PRN ×2 (10:04→14:52)
[2018-07-10] MEDS: TRIAMTERENE/HCTZ 37.5/25 1 EACH TAB PO SCH (10:20)
[2018-07-10] MEDS: ACETAMINOPHEN 325 MG TAB PO PRN (14:51)
--- NOTE | 2018-07-10 15:45 | ASMTCMCOM ---
CM Note CM Note Notes: Patient plan of care reviewed in am rounds. Patient lives alone. Per OT he would benefit from services to help him with home care. Call to Medicaid to inquire as to whom he should reach out to. Plan: Likely home when medically cleared for discharge. Date Signed: 07/10/2018 03:44 PM Electronically Signed By:Coty Kang RN
[2018-07-10 16:23] VITALS: BP 139/75
--- NOTE | 2018-07-10 17:26 | PDDCSUM ---
Discharge Summary Discharge Summary: Date of Admission: 07/07/2018 Date of Discharge: 07/10/2018 Consultants: urology (Dr Santamaria) Studies: CT chest/abdomen/pelvis with IV contrast, abdominal US, CT head, MRI brain, MRI abdomen Procedures: cystourethroscopy with retrograde pyelography, transurethral resection of 3cm bladder tumor Discharge Diagnoses: 1. Gross hematuria 2. Bladder mass with pathology showing non-invasive, low grade papillary urothelial carcinoma 3. Liver lesions 4. Hyperthyroidism 5. Leukocytosis, resolved 6. Hypertension 7. Prior etoh abuse now in remission with evidence of chronic pancreatitis on imaging 8. 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 CT of his abdomen showed a bladder mass. Urology was consulted. He underwent resection of the mass. A flowers catheter was placed and had CBI for approximately 24 hours. His hematuria had essentially resolved. His flowers was left in place until urology follow up as an outpatient. Pathology returned after discharge showing the above findings. CT imaging on admission did show some lesions in his liver. He had an ultrasound and MRI of this. These do not appear to be metastatic lesions. They should be followed as an outpatient with ultrasound or triple phase CT. Additionally, he had some vertiginous symptoms so an MRI of his brain was performed but was unremarkable. Lastly, his labs show that his thyroid function is slightly over-suppressed. He reports that his methimazole dose was decreased just prior to this admission. He should have repeat thyroid studies in the near future with his PCP. Medications: Please refer to EMR for complete list. No new prescriptions. I stopped his aspirin and ibuprofen. Follow Up Plan: 1. Appointment with Dr Santamaria in 2 days to discuss flowers catheter removal and go over biopsy results. 2. Follow thyroid studies with PCP, adjust methimazole accordingly. 3. Surveillance of liver lesions Physical Exam: Vitals reviewed, afebrile. Alert and oriented, chronic tremor, thin appearing, rrr, lungs clear, abdomen soft and nontender, flowers in place with pink urine in bag, no edema.
== END 2018-07-10 17:45 | disposition home or self-care (01) | DRG 669 ==
LOC: INTOOBSV 15:36 → F1N 17:14 → OBSVTOIN 07-08 14:14
PROVIDERS: ADMIT Student in an Organized Health Care Education/Training Program; ATTEND Student in an Organized Health Care Education/Training Program
PROC: BT141ZZ Fluoroscopy of Kidneys, Ureters and Bladder using Low Osmolar Contrast (ICD-10-PCS; principal; 2018-07-08 08:00)
PROC: 0TBB8ZX Excision of Bladder, Via Natural or Artificial Opening Endoscopic, Diagnostic (ICD-10-PCS; principal; 2018-07-08 08:00)
DX: C67.3 Malignant neoplasm of anterior wall of bladder (principal); K76.9 Liver disease, unspecified; E05.90 Thyrotoxicosis, unspecified without thyrotoxic crisis or storm; I10 Essential (primary) hypertension; K86.0 Alcohol-induced chronic pancreatitis; F10.11 Alcohol abuse, in remission
CPT/HCPCS: 84481-90; 97165-GO; 97530-GO; A9585; C1758; G0378; J1100; J1170; J1956; J2250; J2370; J2405; J2704; J3010; Q9967

== ENCOUNTER 2018-10-01 12:53 | Day surgery (SDC) | payer OTHER, MEDICAID ==
[2018-10-01] MEDS ORDERED: LIDOCAINE 1% 2 ML INJ ID PRN (13:29)
[2018-10-01] MEDS ORDERED: LR 1,000 ML IV ONE (13:29)
--- NOTE | 2018-10-01 13:59 | PDANEPAE ---
ANE History of Present Illness abdominal pain, weight loss, cirrhosis ANE Past Medical History - Cardiovascular History Hx Hypertension: Yes Hx Arrhythmias: No Hx Chest Pain: No Hx Coronary Artery / Peripheral Vascular Disease: No Hx CHF / Valvular Disease: No Hx Palpitations: No - Pulmonary History Hx COPD: No Hx Asthma/Reactive Airway Disease: No Hx Recent Upper Respiratory Infection: No Hx Oxygen in Use at Home: No Hx Sleep Apnea: No Pulmonary History Comment: +smoking - Endocrine History Hx Diabetes: No Hypothyroid: No Hyperthyroid: Yes Obesity: no - Renal History Hx Renal Disorders: No - Liver History Hx Hepatic Disorders: No - GI History GERD: no Hx Gastrointestinal Disorders: No Gastrointestinal History Comment: +cirrhosis - Chronic Pain History Chronic Pain: Yes - Surgical History Prior Surgeries: ortho ANE Review of Systems Review of systems is: negative Review of Systems: - Exercise capacity Exercise capacity: >=4 METS ANE Patient History - Allergies Allergies/Adverse Reactions: JORJE Inhibitors [Jorje Inhibitors] Allergy (Unknown, Verified 02/15/11 13:52) - Home Medications Home medications: home medication list seen and reviewed Home Medications: Methimazole [Tapazole 5MG (*)] 2.5 mg PO DAILY 12/08/17 [Last Taken 09/30/18] PARoxetine HCL [Paxil] 40 mg PO HS 12/08/17 [Last Taken 09/30/18] Albuterol [Proventil Inhaler HFA (*)] 1 - 2 puffs IH Q4H PRN 07/07/18 [Last Taken 08/29/18] Metoprolol Tartrate [Lopressor 25 mg (*)] 12.5 mg PO BID 07/07/18 [Last Taken 08:00] Oxymetazoline HCl [Vicks Sinex] 1 spray EACHNARE PRN PRN 07/07/18 [Last Taken Unknown] Triamterene/Hydrochlorothiazid [Triamterene-Hctz 37.5-25 mg Tb] 1 each PO DAILY 07/07/18 [Last Taken Unknown] diphenhydrAMINE [Benadryl 25 MG (*)] 25 mg PO HS PRN 07/07/18 [Last Taken 08:00] - NPO status NPO Status: no food or drink >8 hours NPO Since - Liquids (Date): 10/01/18 NPO Since - Liquids (Time): 10:00 NPO Since - Solids (Date): 09/30/18 - Anes Hx Anes Hx: no prior problems - Smoking Hx Smoking Status: Current every day smoker ANE Labs/Vital Signs - Vital Signs Vital Signs: reviewed preoperatively; see RN documention for details Blood Pressure: 172/102 Heart Rate: 73 Respiratory Rate: 6 O2 Sat (%): 99 Height: 177.8 cm Weight: 61.518 kg ANE Physical Exam - Airway Neck exam: FROM Mallampati Score: Class 2 Mouth exam: poor dentition - Pulmonary Pulmonary: no respiratory distress, rhonchi - Cardiovascular Cardiovascular: regular rate and rhythym (cleared with cough) - ASA Status ASA Status: III ANE Anesthesia Plan Anesthesia Plan: general endotracheal anesthesia
[2018-10-01] MEDS ORDERED: ROCURONIUM 50 MG/5 ML VIAL ONE (14:23)
[2018-10-01] MEDS ORDERED: fentaNYL 100 MCG/2 ML INJ ONE (14:23)
[2018-10-01] MEDS ORDERED: PROPOFOL 200 MG/20 ML VIAL ONE (14:27)
[2018-10-01] MEDS ORDERED: INDOMETHACIN 50 MG SUPP PR PRN (14:34)
--- NOTE | 2018-10-01 14:34 | PDGENHP ---
History & Physical Chief Complaint: abdominal pain/weight loss History of Present Illness: 68 year old male presents for evaluation of abdominal pain/weight loss/abnormal imaging. Pertinent Past, Social, Family History: PMHx: chronic pancreatitis/chronic pain. PSurgHx: bladder surgery Relevant Physical Exam: HEENT: anicteric. CV: RRR +s1s2. Lungs: CTAB. Abd: soft, nt, + bs Cardiorespiratory Assessment: ASA 3
[2018-10-01] MEDS ORDERED: DEXAMETHASONE 4 MG/ML VIAL ONE (14:43)
[2018-10-01] MEDS ORDERED: ONDANSETRON 4 MG/2 ML VIAL ONE (14:44)
[2018-10-01] MEDS ORDERED: NS 500 ML IV SCH (14:45)
[2018-10-01] MEDS ORDERED: ALBUTEROL 3 ML DEYVIAL IH PRN (14:55)
[2018-10-01] MEDS ORDERED: LABETALOL HCL 5 MG/ML 20 ML MDV IVP PRN (14:55)
[2018-10-01] MEDS ORDERED: LR 500 ML IV PRN (14:55)
[2018-10-01] MEDS ORDERED: HYDROmorphONE/DILAUDID 1 MG/ML INJ IVP PRN (14:55)
[2018-10-01] MEDS ORDERED: fentaNYL 100 MCG/2 ML INJ IVP PRN (14:55)
[2018-10-01] MEDS ORDERED: NALOXONE HCL 0.4 MG/ML INJ IVP PRN (14:55)
[2018-10-01] MEDS ORDERED: ONDANSETRON 4 MG/2 ML VIAL IVP PRN (14:55)
[2018-10-01] MEDS ORDERED: PROMETHAZINE HCL 25 MG/ML INJ IVP PRN (14:55)
[2018-10-01] MEDS ORDERED: METOCLOPRAMIDE 10 MG/2 ML VIAL IVP PRN (14:55)
[2018-10-01] MEDS ORDERED: PHENYLEPHRINE HCL 100 MCG/ML SYR IVP PRN (14:55)
[2018-10-01] MEDS ORDERED: MEPERIDINE 25 MG/0.5 ML AMP IVP PRN (14:55)
[2018-10-01] MEDS ORDERED: DEXAMETHASONE 4 MG/ML VIAL IVP PRN (14:55)
--- NOTE | 2018-10-01 16:53 | GIREPORT ---
[facility] Surgical Services - Endoscopy Department Patient Name: Oniel Carey Procedure Date: 10/01/2018 3:53 PM Patient Type: Outpatient Attending MD/ ER Physician: Wes Lizarraga MD Procedure: Colonoscopy Indications: Screening for colorectal malignant neoplasm Patient Profile: 68 year old male presents for screening colonoscopy. Providers: Wes Lizarraga MD Medicines: General Anesthesia Complications: No immediate complications. Estimated blood loss: None. Description of Procedure: After obtaining informed consent, the scope was passed under direct vis ion. Throughout the procedure, the patient's blood pressure, pulse, and oxyg en saturations were monitored continuously. The Colonoscope with irrigatio n channel was introduced through the anus and advanced to the cecum, identified by appendiceal orifice and ileocecal valve. The colonoscopy was performed without difficulty. The patient tolerated the procedure well. The quality of the bowel preparation was adequate to identify polyps. The ileocecal valve, appendiceal orifice, and rectum were photographed. Findings: The perianal and digital rectal examinations were normal. Pertinent negatives include no palpable rectal lesions. Diverticula were found in the sigmoid colon. Estimated Blood Loss: Estimated blood loss: none. Post Op Diagnosis: - Diverticulosis in the sigmoid colon. - No specimens collected. Recommendation: - Discharge patient to home (with escort). - The signs and symptoms of potential delayed complications were discus sed with the patient. - Patient has a contact number available for emergencies. - Return to normal activities tomorrow. - Resume previous diet. - Continue present medications. - Repeat colonoscopy in 10 years for screening purposes. - Thank you for allowing me to participate in the care of your patient. Attending Participation: I personally performed the entire procedure. Wes Lizarraga MD Wes Lizarraga MD 10/01/2018 4:52:11 PM This report has been signed electronicallyWes Lizarraga MD Number of Addenda: 0 Note Initiated On: 10/01/2018 3:53 PM Total Procedure Duration Time 0 hours 16 minutes 29 seconds [email or web address]
[2018-10-01 17:28] VITALS: BP 164/93
--- NOTE | 2018-10-01 19:17 | GPN ---
[f rep st] PROCEDURE NOTE DATE OF PROCEDURE: 10/01/2018 NAME OF PROCEDURE: Esophagogastroduodenoscopy with biopsy, endoscopic ultrasound with fine-needle aspiration. INDICATION: The patient is a 68-year-old male who presents for evaluation of right upper quadrant abdominal pain with radiation to back, dilated common bile duct, as well as weight loss. CONSENT: Risks, benefits, and alternatives of the procedure were discussed in great detail with the patient. Risks of infection, bleeding, perforation, and sedation were discussed. All questions answered and informed consent obtained. MEDICATION: General anesthesia. Please see Anesthesia record for details. ESTIMATED BLOOD LOSS: Insignificant. ESOPHAGOGASTROSCOPY EXAMINATION: The Olympus upper endoscope was introduced into the mouth and advanced to the second portion of duodenum. The esophagus is normal in appearance. The stomach was entered and closely examined including retroflexed views of the angularis, cardia, and fundus. A hiatal hernia was noted. The mucosa in the antrum and body of the stomach was erythematous in a patchy distribution and biopsies were taken. The duodenal bulb and second portion of the duodenum were normal in appearance. Biopsies were taken to rule out celiac sprue. ENDOSCOPIC ULTRASOUND EXAMINATION: The Olympus linear echoendoscope was introduced into the mouth and advanced to the second portion of duodenum. The esophagus, stomach and duodenum were visualized endosonographically. The common bile duct was noted to be dilated and measured approximately 11 mm. In the distal duct, a 5mm area of calcification was noted close to the common bile duct. In the pancreas close to the bile duct, a lobular lesion of approximately 1 cm was noted. Doppler was used to rule out intervening vessels. One transduodenal pass with a [employer] into the lesion. Cytology was present. Preliminary report is suggestive of a benign inflammatory lesion. The pancreas was noted to have calcifications. The main pancreatic duct was dilated to 6 mm and pancreatic duct stones were noted. There was lobularity in the body of the pancreas. In the liver, multiple cysts were noted. No lymphadenopathy noted. After EUS exam, the linear duodenoscope was introduced into the mouth and advanced to the second portion. The ampulla was brought into view. A few attempts were made to pass a wire into the common bile duct were unsuccessful. Due to normal liver function tests and normal FNA, it was decided to terminate procedure at this time. IMPRESSION/RECOMMENDATIONS 1. Chronic pancreatitis. 2. Inflammatory lesion of the distal pancreas. 3. Gastropathy, status post biopsies. 4. Recommend follow up on biopsy and FNA results. 5. Repeat CT scan in 3 months. /[id number]/MODL MTDD
--- NOTE | 2018-10-01 22:40 | POSTANESTH ---
Post Anesthetic Evaluation Cardiovascular Status: Normal, Stable Respiratory Status: Normal, Stable Level of Consciousness/Mental Status: Can Participate in Eval Pain Control: Adequate, Prn Tx Ordered Nausea/Vomiting Control: Adequate, Prn Tx Ordered Complications Possibly Related to Anesthesia: None Noted
== END 2018-10-01 17:50 | disposition home or self-care (01) ==
LOC: FSGY 12:53
PROVIDERS: ATTEND Internal Medicine Gastroenterology
PROC: 0DB68ZX Excision of Stomach, Via Natural or Artificial Opening Endoscopic, Diagnostic (ICD-10-PCS; principal; 2018-10-01 14:30)
PROC: 0DJD8ZZ Inspection of Lower Intestinal Tract, Via Natural or Artificial Opening Endoscopic (ICD-10-PCS; principal; 2018-10-01 14:30)
PROC: 0FBG8ZX Excision of Pancreas, Via Natural or Artificial Opening Endoscopic, Diagnostic (ICD-10-PCS; principal; 2018-10-01 14:30)
PROC: 0DB98ZX Excision of Duodenum, Via Natural or Artificial Opening Endoscopic, Diagnostic (ICD-10-PCS; principal; 2018-10-01 14:30)
DX: K86.89 Other specified diseases of pancreas (principal); K86.1 Other chronic pancreatitis; K76.89 Other specified diseases of liver
CPT/HCPCS: 43238; 43239; 76000; G0104; J1100; J2405; J2704; J3010

== ENCOUNTER 2018-10-29 13:58 | Emergency (ER) | payer OTHER, MEDICAID | END 2018-10-29 16:05 | disposition home or self-care (01) ==